=== PATIENT | female | born 1970 | race Two or more races ===

== ENCOUNTER 2022-09-26 23:20 | Emergency (ER) | payer MEDICAID ==
[~2022-09-26] VITALS: Ht 162.6 cm; Wt 90.9 kg
[2022-09-27] MEDS ORDERED: ONDANSETRON HCL 4 MG/2 ML VIAL IV ONE (00:15)
[2022-09-27 01:10] VITALS: BP 101/50
== END 2022-09-27 01:16 | disposition home or self-care (01) ==
LOC: EDBD 23:20 → ER 23:20
DX: F10.129 Alcohol abuse with intoxication, unspecified (principal); R56.9 Unspecified convulsions; R41.82 Altered mental status, unspecified; Z86.73 Personal history of transient ischemic attack (TIA), and cerebral infarction without residual deficits; Y90.8 Blood alcohol level of 240 mg/100 ml or more
CPT/HCPCS: 82962; 96374; 99283; J2405